=== PATIENT | female | born 1970 ===

== ENCOUNTER 2018-12-12 11:18 | Emergency (ER) | payer SELFPAY ==
--- NOTE | 2018-12-12 11:34 | Event Note ---
ED Screening Note ED Screening Note: abscess on the labia for 3 days no drainage never had before shaved and had small abrasion 5 days ago no fever PMHx: HTN no hx of DM allergies: aspirin This initial assessment/diagnostic orders/clinical plan/treatment(s) is/are subject to change based on patients health status, clinical progression and re- assessment by fellow clinical providers in the ED. Further treatment and workup at subsequent clinical providers discretion. Patient/guardian urged not to elope from the ED as their condition may be serious if not clinically assessed and managed. Initial orders include: evaluation in ACC
[2018-12-12] MEDS ORDERED: LIDOCAINE-MPF (1%) 10 MG/1 ML VIAL 5 ML INFILTRATI ONE (12:18)
--- NOTE | 2018-12-12 12:35 | Emergency Department Report ---
- General Chief complaint: Skin/Abscess/Foreign Body Stated complaint: VULVAR ABCESS Time Seen by Provider: 12/12/18 11:32 Source: patient Mode of arrival: Ambulatory Limitations: No Limitations - History of Present Illness Initial comments: 47-year-old female presents to the emergency room for complaint of vaginal abscess. Patient states it's been there about 2.5 days. Patient reports that she started off with a pimple and then shaved and now she has a larger bump drainage and painful. Patient reports she took Aleve about 8 AM. She reports a past medical history of hypertension and is currently on Coreg. Patient reports her pain is 8 out of 10. Onset/Timin -: days(s) Tetanus Up to Date: no Location: genitals Severity scale (0 -10): 8 Quality: aching, sharp Improves with: none Worsens with: palpation, movement Associated symptoms: denies other symptoms Treatments Prior to Arrival: NSAID - Related Data Previous Rx's Medication Instructions Recorded Last Taken Type Carvedilol [Coreg] 6.25 mg PO BID #28 tablet 02/18/18 Unknown Rx Meloxicam 7.5 mg PO BID #20 tablet 02/18/18 Unknown Rx Clindamycin [Clindamycin CAP] 300 mg PO Q8H #30 cap 12/12/18 Unknown Rx Meloxicam [Mobic] 7.5 mg PO QDAY PRN #15 tablet 12/12/18 Unknown Rx Allergies Allergy/AdvReac Type Severity Reaction Status Date / Time aspirin Allergy Hives Verified 02/18/18 12:16 Abscess Boil HPI - HPI Chief Complaint: Skin/Abscess/Foreign Body Stated Complaint: VULVAR ABCESS Time Seen by Provider: 12/12/18 11:32 Home Medications: Previous Rx's Medication Instructions Recorded Last Taken Type Carvedilol [Coreg] 6.25 mg PO BID #28 tablet 02/18/18 Unknown Rx Meloxicam 7.5 mg PO BID #20 tablet 02/18/18 Unknown Rx Clindamycin [Clindamycin CAP] 300 mg PO Q8H #30 cap 12/12/18 Unknown Rx Meloxicam [Mobic] 7.5 mg PO QDAY PRN #15 tablet 12/12/18 Unknown Rx Allergies/Adverse Reactions: Allergies Allergy/AdvReac Type Severity Reaction Status Date / Time aspirin Allergy Hives Verified 02/18/18 12:16 ED Review of Systems ROS: Stated complaint: VULVAR ABCESS Other details as noted in HPI Comment: All other systems reviewed and negative ED Past Medical Hx - Past Medical History Previous Medical History?: Yes Hx Hypertension: Yes - Surgical History Past Surgical History?: Yes Hx Appendectomy: Yes Additional Surgical History: Hysterectomy - Social History Smoking Status: Never Smoker Substance Use Type: None - Medications Home Medications: Home Medications Medication Instructions Recorded Confirmed Last Taken Type Carvedilol [Coreg] 6.25 mg PO BID #28 tablet 02/18/18 Unknown Rx Meloxicam 7.5 mg PO BID #20 tablet 02/18/18 Unknown Rx Clindamycin [Clindamycin CAP] 300 mg PO Q8H #30 cap 12/12/18 Unknown Rx Meloxicam [Mobic] 7.5 mg PO QDAY PRN #15 tablet 12/12/18 Unknown Rx ED Physical Exam - General Limitations: No Limitations General appearance: alert, in no apparent distress - Head Head exam: Present: atraumatic, normocephalic - Eye Eye exam: Present: normal appearance - ENT ENT exam: Present: mucous membranes moist - External exam: Present: erythema, swelling, lesions - Extremities Exam Extremities exam: Present: normal inspection - Back Exam Back exam: Present: normal inspection - Neurological Exam Neurological exam: Present: alert, oriented X3 - Skin Skin exam: Present: warm, dry, intact, normal color. Absent: rash ED Course Vital Signs 12/12/18 11:32 Temperature 97.8 F Pulse Rate 89 Respiratory 16 Rate Blood Pressure 150/90 O2 Sat by Pulse 100 Oximetry - I & D Right Vagina Type of Procedure: Simple Site: right labia majora Blade Size: 11 I & D Procedure: betadine prep, sterile drapes applied, sterile dressing applied, gauze wick placed Progress: Patient tolerated procedure well. ED Medical Decision Making - Medical Decision Making 47-year-old female presents to the emergency room for complaint of vaginal abscess. Patient states it's been there about 2.5 days. Patient reports that she started off with a pimple and then shaved and now she has a larger bump drainage and painful. Patient reports she took Aleve about 8 AM. She reports a past medical history of hypertension and is currently on Coreg. Patient reports her pain is 8 out of 10. Critical care attestation.: If time is entered above; I have spent that time in minutes in the direct care of this critically ill patient, excluding procedure time. ED Disposition Clinical Impression: Discharging abscess of vagina Disposition: - TO HOME OR SELFCARE Is pt being admited?: No Does the pt Need Aspirin: No Condition: Stable Instructions: Abscess (ED) Additional Instructions: Complete antibiotics as prescribed. Pain medication as needed. Follow-up with the primary care provider. Antibiticos completos segn lo prescrito. Medicamentos para el dolor segn sea necesario. Seguimiento con el proveedor de atencin primaria. Prescriptions: Clindamycin [Clindamycin CAP] 300 mg PO Q8H #30 cap Meloxicam [Mobic] 7.5 mg PO QDAY PRN #15 tablet PRN Reason: Pain , Severe (7-10) Forms: Work/School Release Form(ED)
[2018-12-12] MEDS ORDERED: HYDROcodone/ACETAMINOPHEN 5-325 MG TAB PO ONE (13:18)
[2018-12-12] MEDS ORDERED: IBUPROFEN 600 MG TAB PO ONE ×2 (13:18→13:20)
[2018-12-12] MEDS ORDERED: HYDROcodone/ACETAMINOPHEN 5-325 MG TAB ONE (13:20)
[2018-12-12 13:47] VITALS: BP 136/90
== END 2018-12-12 13:46 | disposition home or self-care (01) ==
LOC: ED 11:18
DX: N76.0 Acute vaginitis (principal); I10 Essential (primary) hypertension; Z90.710 Acquired absence of both cervix and uterus; Z90.49 Acquired absence of other specified parts of digestive tract; Z79.899 Other long term (current) drug therapy
CPT/HCPCS: 99282

== ENCOUNTER 2019-05-06 18:02 | Emergency (ER) | payer OTHER ==
[2019-05-06 19:51] LABS: Basophils % (Auto) 0.8 % (0.0-1.8); Eosinophils % (Auto) 0.3 % (0.0-4.3); Hematocrit 39.5 % (30.3-42.9); Hemoglobin 13.7 gm/dl (10.1-14.3); Lymphocytes # (Auto) 1.3 K/mm3 (1.2-5.4); Lymphocytes % (Auto) 23.9 % (13.4-35.0); Mean Corpuscular HGB Conc 35 % (30-34); Mean Corpuscular Volume 88 fl (79-97); Monocytes # (Auto) 0.6 K/mm3 (0.0-0.8); Monocytes % (Auto) 11.2 % (0.0-7.3); Platelet Count 208 K/mm3 (140-440); Red Blood Count 4.52 M/mm3 (3.65-5.03); Red Cell Distribution Width 14.4 % (13.2-15.2)
--- NOTE | 2019-05-06 20:09 | XRay Report ---
CHEST 2 VIEWS INDICATION / CLINICAL INFORMATION: Chest Pain. COMPARISON: 2 views of the chest from 02/18/2018 FINDINGS: SUPPORT DEVICES: None. HEART / MEDIASTINUM: No significant abnormality. LUNGS / PLEURA: No significant pulmonary or pleural abnormality. No pneumothorax. ADDITIONAL FINDINGS: No significant additional findings. IMPRESSION: 1. No acute abnormality of the chest. Signer Name: Farhat Orozco MD Signed: 05/06/2019 8:04 PM Workstation Name: [id number]
[2019-05-06 20:13] LABS: BUN/Creatinine Ratio 9; Blood Urea Nitrogen 10 mg/dL (7-17); Calcium 9.5 mg/dL (8.4-10.2); Hemolysis Index 28
--- NOTE | 2019-05-06 22:55 | Emergency Department Report ---
ED Chest Pain HPI - General Chief Complaint: Chest Pain Stated Complaint: SENT BY DR/CHEST PRESSURE/TINGLING Time Seen by Provider: 05/06/19 21:55 Source: patient Mode of arrival: Ambulatory Limitations: No Limitations - History of Present Illness Initial Comments: This is a 48-year-old female who presents to the emergency room with chest pain, Nausea, and weakness since yesterday morning. Patient states the nausea started around 0900 a.m. yesterday morning and progressed to chest tightness and weakness. Patient states she went to [facility] urgent care today and sent to the emergency room for an abnormal EKG. Past medical history of hy pertension. Patient states she takes medication as directed. Reports taking medication yesterday and no change in symptoms. MD Complaint: chest pain Onset/Timin -: days(s) Onset: awoke with symptoms Pain Location: left chest Pain Radiation: none Severity: mild Severity scale (0 -10): 3 Quality: tightness Consistency: intermittent Improves With: nothing Worsens With: exertion Context: recent illness re: nausea. denies: vomting, diaphoresis, dyspnea, sense of impending doom Other Symptoms: denies: fever, syncope, acid taste in mouth, leg swelling, palpitations, burping Treatments Prior to Arrival: none - Related Data On Oral Contraceptives: No Previous Rx's Medication Instructions Recorded Last Taken Type Carvedilol [Coreg] 6.25 mg PO BID #28 tablet 02/18/18 Unknown Rx Meloxicam 7.5 mg PO BID #20 tablet 02/18/18 Unknown Rx Clindamycin [Clindamycin CAP] 300 mg PO Q8H #30 cap 12/12/18 Unknown Rx Meloxicam [Mobic] 7.5 mg PO QDAY PRN #15 tablet 12/12/18 Unknown Rx Allergies Allergy/AdvReac Type Severity Reaction Status Date / Time aspirin Allergy Hives Verified 02/18/18 12:16 Heart Score - HEART Score History: Slightly suspicious EKG: Non-specific Age: < 45 Risk factors: 1-2 risk factors Troponin: < normal limit HEART Score: 2 - Critical Actions Critical Actions: 0-3 pts:0.9-1.7%risk of adverse cardiac event.Candidate for discharge ED Review of Systems ROS: Stated complaint: SENT BY DR/CHEST PRESSURE/TINGLING Other details as noted in HPI Constitutional: denies: chills, fever Respiratory: denies: cough, shortness of breath, wheezing Cardiovascular: chest pain. denies: palpitations Gastrointestinal: nausea. denies: abdominal pain, vomiting, diarrhea Musculoskeletal: denies: back pain, joint swelling, arthralgia Skin: denies: rash, lesions Neurological: denies: headache, weakness, paresthesias Psychiatric: denies: anxiety, depression ED Past Medical Hx - Past Medical History Previous Medical History?: Yes Hx Hypertension: Yes - Surgical History Past Surgical History?: Yes Hx Appendectomy: Yes Additional Surgical History: Hysterectomy - Social History Smoking Status: Never Smoker Substance Use Type: None - Medications Home Medications: Home Medications Medication Instructions Recorded Confirmed Last Taken Type Carvedilol [Coreg] 6.25 mg PO BID #28 tablet 02/18/18 Unknown Rx Meloxicam 7.5 mg PO BID #20 tablet 02/18/18 Unknown Rx Clindamycin [Clindamycin CAP] 300 mg PO Q8H #30 cap 12/12/18 Unknown Rx Meloxicam [Mobic] 7.5 mg PO QDAY PRN #15 tablet 12/12/18 Unknown Rx ED Physical Exam - General Limitations: No Limitations General appearance: alert, in no apparent distress, obese - ENT ENT exam: Present: mucous membranes moist - Respiratory Respiratory exam: Present: normal lung sounds bilaterally. Absent: respiratory distress - Cardiovascular Cardiovascular Exam: Present: tachycardia. Absent: systolic murmur, diastolic murmur, rubs, gallop - GI/Abdominal GI/Abdominal exam: Present: soft, normal bowel sounds. Absent: distended, tenderness, guarding, rebound, rigid, organomegaly - Extremities Exam Extremities exam: Present: normal inspection - Neurological Exam Neurological exam: Present: alert, oriented X3, normal gait - Psychiatric Psychiatric exam: Present: normal affect, normal mood - Skin Skin exam: Present: warm, dry, intact, normal color. Absent: rash ED Course Vital Signs 05/06/19 05/07/19 19:14 00:25 Temperature 97.9 F 97.8 F Pulse Rate 107 H 87 Respiratory 18 18 Rate Blood Pressure 141/84 Blood Pressure 130/87 [Left] O2 Sat by Pulse 100 100 Oximetry SATHYA score - Sathya Score Aspirin use within the Past 7 Days: (0) No ED Medical Decision Making - Lab Data Result diagrams: 05/06/19 19:28 05/06/19 19:28 Lab Results 05/06/19 05/06/19 05/06/19 Range/Units 19:28 19:28 22:53 WBC 5.3 (4.5-11.0) K/mm3 RBC 4.52 (3.65-5.03) M/mm3 Hgb 13.7 (10.1-14.3) gm/dl Hct 39.5 (30.3-42.9) % MCV 88 (79-97) fl MCH 30 (28-32) pg MCHC 35 H (30-34) % RDW 14.4 (13.2-15.2) % Plt Count 208 (140-440) K/mm3 Lymph % (Auto) 23.9 (13.4-35.0) % [place] % (Auto) 11.2 H (0.0-7.3) % Eos % (Auto) 0.3 (0.0-4.3) % Baso % (Auto) 0.8 (0.0-1.8) % Lymph # 1.3 (1.2-5.4) K/mm3 [place] # 0.6 (0.0-0.8) K/mm3 Eos # 0.0 (0.0-0.4) K/mm3 Baso # 0.0 (0.0-0.1) K/mm3 Seg Neutrophils % 63.8 (40.0-70.0) % Seg Neutrophils # 3.4 (1.8-7.7) K/mm3 Sodium 140 (137-145) mmol/L Potassium 3.5 L (3.6-5.0) mmol/L Chloride 104.2 (98-107) mmol/L Carbon Dioxide 18 L (22-30) mmol/L Anion Gap 21 mmol/L BUN 10 (7-17) mg/dL Creatinine 1.1 (0.7-1.2) mg/dL Estimated GFR 53 ml/min BUN/Creatinine Ratio 9 % Glucose 97 (65-100) mg/dL Calcium 9.5 (8.4-10.2) mg/dL Troponin T < 0.010 < 0.010 (0.00-0.029) ng/mL 05/07/19 Range/Units 01:08 WBC (4.5-11.0) K/mm3 RBC (3.65-5.03) M/mm3 Hgb (10.1-14.3) gm/dl Hct (30.3-42.9) % MCV (79-97) fl MCH (28-32) pg MCHC (30-34) % RDW (13.2-15.2) % Plt Count (140-440) K/mm3 Lymph % (Auto) (13.4-35.0) % [place] % (Auto) (0.0-7.3) % Eos % (Auto) (0.0-4.3) % Baso % (Auto) (0.0-1.8) % Lymph # (1.2-5.4) K/mm3 [place] # (0.0-0.8) K/mm3 Eos # (0.0-0.4) K/mm3 Baso # (0.0-0.1) K/mm3 Seg Neutrophils % (40.0-70.0) % Seg Neutrophils # (1.8-7.7) K/mm3 Sodium (137-145) mmol/L Potassium (3.6-5.0) mmol/L Chloride (98-107) mmol/L Carbon Dioxide (22-30) mmol/L Anion Gap mmol/L BUN (7-17) mg/dL Creatinine (0.7-1.2) mg/dL Estimated GFR ml/min BUN/Creatinine Ratio % Glucose (65-100) mg/dL Calcium (8.4-10.2) mg/dL Troponin T < 0.010 (0.00-0.029) ng/mL - EKG Data -: No EKG Interpreted by Me (EKG interpreted by attending) Rate: tachycardia (No STEMI) - Radiology Data Radiology results: report reviewed CHEST 2 VIEWS INDICATION / CLINICAL INFORMATION: Chest Pain. COMPARISON: 2 views of the chest from 02/18/2018 FINDINGS: SUPPORT DEVICES: None. HEART / MEDIASTINUM: No significant abnormality. LUNGS / PLEURA: No significant pulmonary or pleural abnormality. No pneumothorax. ADDITIONAL FINDINGS: No significant additional findings. IMPRESSION: 1. No acute abnormality of the chest. - Medical Decision Making 48 y.o. female that presents with chest pain since yesterday morning. Denies drug use, asthma, SOB, palpations, fever, or dyspnea. Past medical history of hypertension. Tachycardia on arrival. Obtained CMP, CBC, troponin, and chest xray. Troponins x3 negative, WBC's 3.5, all other labs unremarkable for emergent chest pain. Chest x-ray negative for acute cardiopulmonary findings. Heart score 2. EKG no overt evidence of STEMI. Due to work-up and exam there is low suspicion for acute coronary syndrome, pulmonary embolus, pneumothorax, or aortic dissection, or other emergent problems. Given Klor-Con 40 mill EQ for hypokalemia. Patient's pain was controlled prior to discharge and well appearing. Start ibuprofen. Referrals given for cardiology as needed. Discharged home stable. Follow up with PCP in 24-48 hours. Given strict return instructions. Critical care attestation.: If time is entered above; I have spent that time in minutes in the direct care of this critically ill patient, excluding procedure time. ED Disposition Clinical Impression: Hypokalemia Chest pain Qualifiers: Chest pain type: other chest pain Qualified Code(s): R07.89 - Other chest pain Disposition: TO HOME OR SELFCARE Is pt being admited?: No Condition: Stable Instructions: Chest Pain (ED) Additional Instructions: Follow-up with a e learning manager from the list provided. Referrals: [facility] [Outside] - 3-5 Days ROHAN ORTIZ MD [Staff Physician] - 3-5 Days [facility] [Provider Group] - 3-5 Days Forms: Work/School Release Form(ED) Time of Disposition: 02:19
[2019-05-07 00:26] VITALS: BP 130/87
[2019-05-07] MEDS ORDERED: POTASSIUM CHLORIDE ER 20 MEQ TAB PO ONE (01:59)
== END 2019-05-07 02:30 | disposition home or self-care (01) ==
LOC: ED 18:02
DX: E87.6 Hypokalemia (principal); R07.89 Other chest pain; I10 Essential (primary) hypertension; Z90.49 Acquired absence of other specified parts of digestive tract; Z90.710 Acquired absence of both cervix and uterus; Z88.6 Allergy status to analgesic agent; Z79.899 Other long term (current) drug therapy
CPT/HCPCS: 36415; 71046; 80048; 84484; 85025; 93005; 93010